=== PATIENT | male | born 1960 | race Caucasian/White ===

== ENCOUNTER 2018-01-10 17:33 | Emergency (ER) | payer OTHER ==
--- NOTE | 2018-01-10 17:45 | EDM.PDOC ---
ED HPI GENERAL MEDICAL PROBLEM - General Stated Complaint: BACK PAIN Time Seen by Provider: 01/10/18 17:45 Source of Information: Reports: Patient History Limitations: Reports: No Limitations - History of Present Illness INITIAL COMMENTS - FREE TEXT/NARRATIVE: HISTORY AND PHYSICAL: History of present illness: patient is a 57-year-old male who presents to the emergency room with complaints of low back pain that radiates down his right gluteus. He states this morning while getting up out of bed he was walking towards the bathroom and twisted wrong and started to have the low back pain that radiates down the glue. He denies any urinary or fecal incontinence. He denies any trauma or injury. Denies any numbness or tingling to his distal extremities. Review of systems: As per history of present illness and below otherwise all systems reviewed and negative. Past medical history: As per history of present illness and as reviewed below otherwise noncontributory. Surgical history: As per history of present illness and as reviewed below otherwise noncontributory. Social history: No reported history of drug or alcohol abuse. Family history: As per history of present illness and as reviewed below otherwise noncontributory. Physical exam: General: Well-developed and well-nourished 57-year-old male. Alert and oriented. Nontoxic appearing and in no acute distress. HEENT: Atraumatic, normocephalic, pupils equal and reactive bilaterally, negative for conjunctival pallor or scleral icterus, mucous membranes moist, throat clear, neck supple, nontender, trachea midline. No drooling or trismus noted. No meningeal signs Lungs: Clear to auscultation, breath sounds equal bilaterally, chest nontender. Heart: S1S2, regular rate and rhythm without overt murmur Abdomen: Soft, nondistended, nontender. Negative for masses or hepatosplenomegaly. Negative for costovertebral tenderness. Pelvis: Stable nontender. Genitourinary: Deferred. Rectal: Deferred. Skin: Intact, warm, dry. No lesions or rashes noted. C-spine/Back: No pinpoint vertebral tenderness upon palpation. No crepitus, step -offs or obvious or malaise. Patient is fully ambulatory without difficulty or deficits. No urinary or fecal incontinence. He is able to ambulate, walking on his heels and toes. Extremities: Atraumatic, negative for cords or calf pain. Neurovascular unremarkable. Neuro: Awake, alert, oriented. Cranial nerves II through XII unremarkable. Cerebellum unremarkable. Motor and sensory unremarkable throughout. Exam nonfocal. Notes: Patient is agreeable to a lumbar x-ray. We'll give him IM Toradol and Norflex. He does have a ride to home. X-ray shows mild scoliosis without any evidence of acute fracture or dislocation. Vertebral height is preserved. Soft tissues appear within normal limits. We'll prescribe Cataflam and Flexeril. Medication education was completed. Patient will follow up with his primary care provider in the next 1- 2 days. Denies any further questions or concerns at this time. Diagnostics: Xray Therapeutics: Toradol and Norflex Impression: Low back with sciatica Plan: 1. Please take your medication as prescribed. The flexeril may cause drowsiness , so do not take while driving or needing to be functioning outside the house. 2. Follow up with your primary care provider within the next 1-2 days. Return to the ED as needed as discussed. Definitive disposition and diagnosis as appropriate pending reevaluation and review of above. Onset: Today Duration: Hour(s): Location: Reports: Back Right Back Pain Score (Numeric/FACES): 10 - Related Data Allergies Allergy/AdvReac Type Severity Reaction Status Date / Time No Known Allergies Allergy Verified 01/10/18 17:42 Home Meds: Home Meds Losartan [Cozaar] 50 mg PO DAILY 01/10/18 [History] ED ROS GENERAL - Review of Systems Review Of Systems: ROS reveals no pertinent complaints other than HPI. ED EXAM,LOWER BACK PAIN/INJURY - Physical Exam Exam: See Below (See dictation) Course - Vital Signs Last Recorded V/S: Last Vital Signs Temp 98.1 F 01/10/18 17:44 Pulse 71 01/10/18 17:44 Resp 18 01/10/18 17:44 BP 183/87 H 01/10/18 17:44 Pulse Ox 95 01/10/18 17:44 - Orders/Labs/Meds Orders: Active Orders 24 hr Category Date Time Status Lumbar Spine 2 or 3V [CR] Stat Exams 01/10/18 17:55 Ordered Meds: Medications Discontinued Medications Generic Name Dose Route Start Last Admin Trade Name Freq PRN Reason Stop Dose Admin Ketorolac Tromethamine 60 mg 01/10/18 17:50 01/10/18 17:55 Toradol IM 01/10/18 17:51 60 mg ONETIME ONE Administration Orphenadrine Citrate 60 mg 01/10/18 17:50 01/10/18 17:56 Norflex IM 01/10/18 17:51 60 mg NOW STA Administration Departure - Departure Time of Disposition: 19:00 Disposition: Home, Self-Care 01 Clinical Impression: Back pain Qualifiers: Back pain location: low back pain Chronicity: acute Back pain laterality: midline Sciatica presence: with sciatica Sciatica laterality: sciatica of right side Qualified Code(s): M54.41 - Lumbago with sciatica, right side - Discharge Information Instructions: Back Pain, Adult, [id number] Referrals: PCP,None [Primary Care Provider] - Additional Instructions: The following information is given to patients seen in the emergency department who are being discharged to home. This information is to outline your options for follow-up care. We provide all patients seen in our emergency department with a follow-up referral. The need for follow-up, as well as the timing and circumstances, are variable depending upon the specifics of your emergency department visit. If you don't have a primary care physician on staff, we will provide you with a referral. We always advise you to contact your personal physician following an emergency department visit to inform them of the circumstance of the visit and for follow-up with them and/or the need for any referrals to a consulting specialist. The emergency department will also refer you to a specialist when appropriate. This referral assures that you have the opportunity for follow-up care with a specialist. All of these measure are taken in an effort to provide you with optimal care, which includes your follow-up. Under all circumstances we always encourage you to contact your private physician who remains a resource for coordinating your care. When calling for follow-up care, please make the office aware that this follow-up is from your recent emergency room visit. If for any reason you are refused follow-up, please contact the [facility] Emergency Department at and asked to speak to the emergency department charge nurse. [facility] [address] [place] [id number] 1. Please take your medication as prescribed. The flexeril may cause drowsiness , so do not take while driving or needing to be functioning outside the house. 2. Follow up with your primary care provider within the next 1-2 days. Return to the ED as needed as discussed. - My Orders Last 24 Hours: My Active Orders 01/10/18 17:55 Lumbar Spine 2 or 3V [CR] Stat - Assessment/Plan Last 24 Hours: My Active Orders 01/10/18 17:55 Lumbar Spine 2 or 3V [CR] Stat
[2018-01-10] MEDS ORDERED: Ketorolac 60 MG/2 ML SDV IM ONE (17:50)
--- NOTE | 2018-01-12 09:54 | CR ---
EXAM DATE: 01/10/18 PATIENT'S AGE: 57 Patient: ALVINO HUERTA Facility: [place], [place] Site . Site : 1960 Study: XRay Spine Lumbar [id number] 6:25:49 PM Ordering Physician: Doctor Ayoub Final Report: HISTORY: Low back pain. COMPARISON: None. FINDINGS: There is mild scoliosis convex to the left. Vertebral body disk space heights are preserved. No evidence for acute fracture or dislocation. Soft tissues appear within normal. Dictated by Ruthie Gonzalez MD @ Jan 10 2018 6:58PM (Electronic Signature) Report Signed by Proxy. EDU
== END 2018-01-10 19:08 | disposition home or self-care (01) ==
LOC: MW.ED 17:33
DX: M54.41 Lumbago with sciatica, right side (principal)
CPT/HCPCS: 72100; 96372; 99283; J1885; J2360